=== PATIENT | male | born 1950 | race American Indian/Alaskan Native ===

== ENCOUNTER 2022-12-10 12:38 | Inpatient (IN) | payer MEDICARE, OTHER ==
[2022-12-10] MEDS ORDERED: Sodium Chloride 0.9% 10 ML Syringe FLUSH PRN (12:45)
[2022-12-10] MEDS ORDERED: Sodium Chloride 0.9% 500 ML IV ONE ×3 (12:47→16:01)
[2022-12-10 13:26] LABS: ESTIMATED GFR 72 mL/min (>60)
[2022-12-10 13:27] LABS: TROPONIN I HIGH SENSITIVITY 11.6 pg/mL (<=60.3)
[2022-12-10] MEDS ORDERED: Morphine 2 MG/ML SYRINGE IVPUSH ONE ×2 (13:33→13:57)
[2022-12-10 13:49] LABS: CORONAVIRUS COVID-19 NAA NEGATIVE (NEGATIVE)
[2022-12-10] MEDS ORDERED: Sodium Chloride 0.9% 1,000 ML IV SCH (14:00)
[2022-12-10] MEDS ORDERED: Adenosine 6 MG/2 ML SDV IVPUSH ONE (14:08)
[2022-12-10] MEDS ORDERED: Diltiazem 25 MG/5 ML SDV IVPUSH ONE (14:21)
[2022-12-10] MEDS ORDERED: Prochlorperazine 10 MG/2 ML SDV IVPUSH ONE (14:49)
[2022-12-10] MEDS ORDERED: Digoxin 500 MCG/2 ML Amp IVPUSH ONE (15:25)
[2022-12-10] MEDS ORDERED: Acetaminophen 325 MG Tab PO PRN (16:01)
[2022-12-10] MEDS ORDERED: Diltiazem 100 MG in Sodium Chloride 0.9% 100 ML IV SCH (16:01)
[2022-12-10] MEDS ORDERED: Ondansetron 4 MG Tab.DIS PO PRN (16:01)
[2022-12-10] MEDS ORDERED: HYDROmorphone 1 MG/ML Syringe IVPUSH PRN (16:01)
[2022-12-10] MEDS ORDERED: Ondansetron 4 MG/2 ML SDV IV PRN (16:01)
[2022-12-10] MEDS ORDERED: traMADol 50 MG Tab PO PRN (16:01)
[2022-12-10] MEDS ORDERED: Enoxaparin 40 MG/0.4 ML Syringe SUBCUT SCH (16:01)
[2022-12-10] MEDS ORDERED: LORazepam 2 MG/ML SDV IVPUSH PRN (16:01)
[2022-12-10] MEDS ORDERED: Nicotine 21 MG/24 Hr Patch TRDERM ONE (16:13)
[2022-12-10] MEDS ORDERED: LORazepam 2 MG/ML SDV IVPUSH ONE (16:13)
[2022-12-10] MEDS: Insulin Lispro 100 Unit/ML 3 ML KwikPen SUBCUT SCH ×3 (16:33→21:04)
[2022-12-10] MEDS: Sodium Chloride 0.9% 1,000 ML IV SCH (17:24)
[2022-12-10] MEDS ORDERED: LORazepam 0.5 MG Tab PO PRN (20:00)
[2022-12-10] MEDS ORDERED: Amiodarone 150 MG/3 ML SDV IVPUSH ONE (20:39)
[2022-12-10] MEDS ORDERED: Norepinephrine Bit/D5W Premix 4 MG in Premix Bag 1 BAG IV SCH (20:45)
[2022-12-10] MEDS ORDERED: Mirtazapine 15 MG Tab PO SCH (21:00)
[2022-12-10] MEDS: metFORMIN 500 MG Tab PO SCH (21:08)
[2022-12-10] MEDS: Gabapentin 400 MG Cap PO SCH (21:08)
[2022-12-10] MEDS: Insulin Glargine,Human Rec. Analog 100 Units/ML 3 ML Pen SUBCUT SCH (21:08)
[2022-12-10] MEDS: Famotidine 20 MG Tab PO SCH (21:12)
[2022-12-10] MEDS: Metoprolol Tartrate 50 MG Tab PO SCH (21:57)
[2022-12-11] MEDS: Sodium Chloride 0.9% 1,000 ML IV SCH (06:59)
[2022-12-11] MEDS: Insulin Lispro 100 Unit/ML 3 ML KwikPen SUBCUT SCH ×4 (07:05→12:01)
[2022-12-11] MEDS ORDERED: Aspirin 81 MG Tab.EC PO SCH (09:00)
[2022-12-11] MEDS ORDERED: Nicotine 21 MG/24 Hr Patch TRDERM SCH ×2 (09:00→16:30)
[2022-12-11] MEDS ORDERED: Cetirizine 10 MG Tab PO SCH (09:00)
[2022-12-11] MEDS ORDERED: predniSONE 5 MG Tab PO SCH (09:00)
[2022-12-11] MEDS ORDERED: Clopidogrel 75 MG Tab PO SCH (09:00)
[2022-12-11] MEDS ORDERED: atorvaSTATin 20 MG Tab PO SCH (09:00)
[2022-12-11] MEDS: metFORMIN 500 MG Tab PO SCH (09:06)
[2022-12-11] MEDS: Famotidine 20 MG Tab PO SCH (09:07)
[2022-12-11] MEDS: Gabapentin 400 MG Cap PO SCH ×2 (09:07→14:18)
[2022-12-11] MEDS: Metoprolol Tartrate 50 MG Tab PO SCH (09:07)
[2022-12-11] MEDS: Insulin Glargine,Human Rec. Analog 100 Units/ML 3 ML Pen SUBCUT SCH (09:11)
[2022-12-11] MEDS ORDERED: metFORMIN 500 MG Tab PO SCH (13:00)
[2022-12-11 13:02] VITALS: PULSE 63
[2022-12-11 14:03] VITALS: BP 126/71
== END 2022-12-11 15:00 | disposition home or self-care (01) | DRG 392 ==
LOC: JP.ED 12:38 → JP.ICU 15:25
PROVIDERS: ADMIT Internal Medicine; ATTEND Internal Medicine
DX: A08.4 Viral intestinal infection, unspecified (principal); I48.92 Unspecified atrial flutter; I95.89 Other hypotension; E86.1 Hypovolemia; E11.51 Type 2 diabetes mellitus with diabetic peripheral angiopathy without gangrene; E11.43 Type 2 diabetes mellitus with diabetic autonomic (poly)neuropathy; E86.0 Dehydration; H91.90 Unspecified hearing loss, unspecified ear; E78.00 Pure hypercholesterolemia, unspecified; E11.621 Type 2 diabetes mellitus with foot ulcer; L97.522 Non-pressure chronic ulcer of other part of left foot with fat layer exposed; I10 Essential (primary) hypertension; J44.9 Chronic obstructive pulmonary disease, unspecified; F17.210 Nicotine dependence, cigarettes, uncomplicated; R63.0 Anorexia; Z79.82 Long term (current) use of aspirin; Z79.4 Long term (current) use of insulin; Z98.890 Other specified postprocedural states; Z79.899 Other long term (current) drug therapy; Z79.02 Long term (current) use of antithrombotics/antiplatelets
CPT/HCPCS: 0241U; 36415; 71045; 71045-26; 80048; 80053; 81001; 82800; 82947; 83605; 83735; 84145; 84443; 84484; 85025; 85027; 85610; 85730; 86140; 93005; 93010; 96361; 96374; 96375; 99223; 99238; 99285; 99285-25; A9270-GY; J0153; J0282; J0780; J1160; J1650; J1815; J1815-GY; J2060; J2270; J3490; J7030; J7040; J7512

== ENCOUNTER 2023-03-27 08:23 | Inpatient (IN) | payer MEDICARE ==
[2023-03-27] MEDS ORDERED: Sodium Chloride 0.9% 10 ML Syringe FLUSH PRN (09:26)
[2023-03-27 09:38] LABS: BASOPHILS ABSOLUTE AUTO 0.03 K/uL (0.00-0.10); BASOPHILS PERCENT AUTO 0.2 % (0.1-1.3); EOSINOPHILS ABSOLUTE AUTO 0.06 K/uL (0.00-0.40); EOSINOPHILS PERCENT AUTO 0.4 % (0.0-5.4); HEMATOCRIT 31.9 % (38.4-49.7); IMMATURE GRAN ABSOLUTE AUTO 0.07 K/uL (0.00-0.23); IMMATURE GRAN PERCENT AUTO 0.5 % (0.0-0.7); LYMPHOCYTES ABSOLUTE AUTO 1.16 K/uL (0.8-3.3); LYMPHOCYTES PERCENT AUTO 8.3 % (11.4-47.7); MEAN CORPUSCULAR HEMOGLOBIN 30.2 pg (31.6-35.5); MEAN CORPUSCULAR HGB CONC 34.5 g/dL (31.6-35.5); MEAN CORPUSCULAR VOLUME 87.6 fL (81.4-99.0); MONOCYTES ABSOLUTE AUTO 0.53 K/uL (0.20-0.90); MONOCYTES PERCENT AUTO 3.8 % (3.3-12.6); NEUTROPHILS ABSOLUTE AUTO 12.06 K/uL (1.0-7.6); NEUTROPHILS PERCENT AUTO 86.8 % (40.0-78.1); PLATELET COUNT,PLT 370 K/uL (130-375); RED BLOOD CELL COUNT 3.64 M/uL (4.14-5.76); WHITE BLOOD CELL COUNT,WBC 13.9 K/uL (3.2-11.0)
[2023-03-27 10:12] LABS: APPEARANCE,URINE SLIGHTLY CLOUDY (CLEAR); BILIRUBIN,URINE NEGATIVE (NEGATIVE); COLOR,URINE YELLOW (YELLOW); GLUCOSE,URINE 100 mg/dL (NEGATIVE); KETONES,URINE NEGATIVE (NEGATIVE); LEUKOCYTE ESTERASE,URINE NEGATIVE (NEGATIVE); NITRITE,URINE NEGATIVE (NEGATIVE); OCCULT BLOOD,URINE LARGE (NEGATIVE); PROTEIN,URINE >=300 mg/dL (NEGATIVE); UROBILINOGEN,URINE 0.2 EU/dL (0.2-1.0)
[2023-03-27 10:27] LABS: A/G RATIO 0.4 (1.2-2.2); ALANINE AMINOTRANSFERASE,ALT 18 U/L (12-78); ALBUMIN 1.8 g/dL (3.4-5.0); ALKALINE PHOSPHATASE 110 U/L (46-116); ASPARTATE AMNIOTRANSFERASE,AST 22 U/L (15-37); BILIRUBIN TOTAL 0.3 mg/dL (0.2-1.0); CALCIUM 7.4 mg/dL (8.5-10.1); CARBON DIOXIDE,CO2 24 mmol/L (21-32); CHLORIDE,CL 102 mmol/L (100-108); EST CRCL DRUG DOSING (CG) 12.76 mL/min; ESTIMATED GFR 12 mL/min (>60); GLUCOSE RANDOM 74 mg/dL (74-106); POTASSIUM,K 4.1 mmol/L (3.6-5.2); PROTEIN TOTAL,TP 6.3 g/dL (6.4-8.2); SODIUM,NA 137 mmol/L (140-148)
[2023-03-27 10:30] LABS: ANION GAP 15.1 mmol/L (5.0-14.0)
[2023-03-27 10:31] LABS: BLOOD UREA NITROGEN,BUN 81 mg/dL (7-18); CREATININE 4.7 mg/dL (0.8-1.3)
[2023-03-27 10:31] LABS: RBC,URINE 50-75 (0-5); WBC,URINE 0-5 (0-5)
[2023-03-27 10:32] LABS: AMORPHOUS SEDIMENT,URINE MANY; BACTERIA,URINE RARE; EPITHELIAL CELLS,URINE NOT SEEN; MUCUS,URINE NOT SEEN
[2023-03-27 10:33] LABS: C-REACTIVE PROTEIN 7.48 mg/dL (0.0-0.3); MAGNESIUM 2.7 mg/dL (1.8-2.4); PHOSPHORUS 5.7 mg/dL (2.5-4.9)
[2023-03-27 10:33] LABS: FOLIC ACID 9.5 ng/ml (8.6-58.9)
[2023-03-27] MEDS ORDERED: Dextrose 5%-0.9% NaCl 1,000 ML IV SCH ×2 (10:45→12:00)
[2023-03-27] MEDS ORDERED: LORazepam 2 MG/ML SDV IVPUSH ONE (13:08)
[2023-03-27] MEDS ORDERED: Ondansetron 4 MG Tab.DIS PO PRN (13:35)
[2023-03-27] MEDS ORDERED: Ondansetron 4 MG/2 ML SDV IV PRN (13:35)
[2023-03-27] MEDS ORDERED: Albuterol 0.083% 2.5 MG/3 ML Neb Soln NEB PRN (13:35)
[2023-03-27 13:59] LABS: PROTEIN,URINE RANDOM 802.2 mg/dL (6.0-11.9)
[2023-03-27] MEDS ORDERED: HYDROmorphone 0.5 MG/0.5 ML Syringe IVPUSH PRN (14:24)
[2023-03-27] MEDS: Sodium Chloride 0.9% 1,000 ML IV SCH (14:37)
[2023-03-27] MEDS: Nicotine 21 MG/24 Hr Patch TRDERM PRN (16:32)
[2023-03-27] MEDS: LORazepam 2 MG/ML SDV IVPUSH PRN ×2 (16:58→23:22)
[2023-03-27] MEDS: Pantoprazole 40 MG Vial IV SCH (17:01)
[2023-03-28] MEDS: LORazepam 2 MG/ML SDV IVPUSH PRN (03:59)
[2023-03-28] MEDS: Pantoprazole 40 MG Vial IV SCH (05:38)
[2023-03-28 05:52] LABS: HEMATOCRIT 27.8 % (38.4-49.7); HEMOGLOBIN 9.5 g/dL (12.9-16.9); MEAN CORPUSCULAR HEMOGLOBIN 29.7 pg (31.6-35.5); MEAN CORPUSCULAR HGB CONC 34.2 g/dL (31.6-35.5); MEAN CORPUSCULAR VOLUME 86.9 fL (81.4-99.0); RED BLOOD CELL COUNT 3.2 M/uL (4.14-5.76); WHITE BLOOD CELL COUNT,WBC 10.1 K/uL (3.2-11.0)
[2023-03-28 06:10] LABS: EST CRCL DRUG DOSING (CG) 15.29 mL/min; POTASSIUM,K 3.9 mmol/L (3.6-5.2)
[2023-03-28 06:12] LABS: ANION GAP 14.9 mmol/L (5.0-14.0)
[2023-03-28 06:14] LABS: CALCIUM 6.8 mg/dL (8.5-10.1); CREATININE 4.3 mg/dL (0.8-1.3)
[2023-03-28] MEDS: Sodium Chloride 0.9% 1,000 ML IV SCH ×3 (07:35→19:32)
[2023-03-28] MEDS ORDERED: Propofol 200 MG/20 ML SDV ONE ×2 (07:53→10:28)
[2023-03-28] MEDS ORDERED: fentaNYL 100 MCG/2 ML SDV ONE (07:54)
[2023-03-28] MEDS ORDERED: Glycopyrrolate 0.2 MG/ML 2 ML SDV IVPUSH ONE ×3 (09:00→12:30)
[2023-03-28] MEDS ORDERED: Sodium Chloride 0.9% 10 ML ONE (10:39)
[2023-03-28] MEDS ORDERED: Phenylephrine 1% 10 MG/ML SDV ONE (10:39)
[2023-03-28] MEDS ORDERED: Ondansetron 4 MG/2 ML SDV IVPUSH ONE (11:19)
[2023-03-28] MEDS ORDERED: Metoclopramide 10 MG/2 ML SDV IVPUSH ONE (11:20)
[2023-03-28] MEDS ORDERED: Scopolamine 1.5 MG Transdermal Patch TOP SCH (11:30)
[2023-03-28] MEDS ORDERED: Ondansetron 4 MG/2 ML SDV IVPUSH PRN (12:37)
[2023-03-28] MEDS: SCOPOLAMINE PATCH CHECK TOP SCH (13:12)
[2023-03-28] MEDS: Nicotine 21 MG/24 Hr Patch TRDERM PRN (17:04)
[2023-03-28] MEDS: LORazepam 0.5 MG Tab PO PRN ×2 (18:44→22:37)
[2023-03-28] MEDS: Metoclopramide 10 MG/2 ML SDV IVPUSH SCH (20:24)
[2023-03-28] MEDS: Insulin Lispro 100 Unit/ML 3 ML KwikPen SUBCUT SCH (21:45)
[2023-03-29] MEDS: Metoclopramide 10 MG/2 ML SDV IVPUSH SCH (03:00)
[2023-03-29] MEDS ORDERED: Iopamidol 612 MG/ML 50 ML SDV PO ONE (03:33)
[2023-03-29] MEDS: Sodium Chloride 0.9% 1,000 ML IV SCH (03:34)
[2023-03-29 06:00] LABS: HEMATOCRIT 28.6 % (38.4-49.7); HEMOGLOBIN 9.6 g/dL (12.9-16.9); MEAN CORPUSCULAR HGB CONC 33.6 g/dL (31.6-35.5); MEAN CORPUSCULAR VOLUME 89.4 fL (81.4-99.0); RED BLOOD CELL COUNT 3.2 M/uL (4.14-5.76); WHITE BLOOD CELL COUNT,WBC 10.7 K/uL (3.2-11.0)
[2023-03-29 06:13] LABS: EST CRCL DRUG DOSING (CG) 15.29 mL/min; POTASSIUM,K 3.9 mmol/L (3.6-5.2)
[2023-03-29 06:17] LABS: ANION GAP 13.9 mmol/L (5.0-14.0)
[2023-03-29 06:18] LABS: CALCIUM 6.7 mg/dL (8.5-10.1); CREATININE 4.3 mg/dL (0.8-1.3)
[2023-03-29 07:49] VITALS: BP 169/89; PULSE 88
[2023-03-29] MEDS ORDERED: Acetaminophen 325 MG Tab PO PRN (07:56)
[2023-03-29] MEDS: Insulin Lispro 100 Unit/ML 3 ML KwikPen SUBCUT SCH (08:16)
[2023-03-29] MEDS ORDERED: Gabapentin 100 MG Cap PO SCH (09:00)
[2023-03-29] MEDS ORDERED: Famotidine 20 MG Tab PO SCH (09:00)
[2023-03-29] MEDS ORDERED: atorvaSTATin 20 MG Tab PO SCH (09:00)
[2023-03-29] MEDS ORDERED: Clopidogrel 75 MG Tab PO SCH (09:00)
[2023-03-29] MEDS ORDERED: Metoprolol Tartrate 50 MG Tab PO SCH (09:00)
[2023-03-29] MEDS ORDERED: Aspirin 81 MG Tab.Chew PO SCH (09:00)
[2023-03-29] MEDS: SCOPOLAMINE PATCH CHECK TOP SCH (09:58)
== END 2023-03-29 14:00 | disposition home or self-care (01) | DRG 683 ==
LOC: JP.ED 08:23 → JP.MS 13:14
PROVIDERS: ADMIT Internal Medicine; ATTEND Internal Medicine
DX: N17.9 Acute kidney failure, unspecified (principal); C34.91 Malignant neoplasm of unspecified part of right bronchus or lung; K31.5 Obstruction of duodenum; I48.20 Chronic atrial fibrillation, unspecified; T66.XXXA Radiation sickness, unspecified, initial encounter; R13.19 Other dysphagia; R31.21 Asymptomatic microscopic hematuria; R80.9 Proteinuria, unspecified; E11.42 Type 2 diabetes mellitus with diabetic polyneuropathy; E11.622 Type 2 diabetes mellitus with other skin ulcer; Z20.822 Contact with and (suspected) exposure to COVID-19; E86.0 Dehydration; L97.522 Non-pressure chronic ulcer of other part of left foot with fat layer exposed; L97.512 Non-pressure chronic ulcer of other part of right foot with fat layer exposed; I83.015 Varicose veins of right lower extremity with ulcer other part of foot; I83.025 Varicose veins of left lower extremity with ulcer other part of foot; J44.9 Chronic obstructive pulmonary disease, unspecified; I10 Essential (primary) hypertension; F41.9 Anxiety disorder, unspecified; E11.51 Type 2 diabetes mellitus with diabetic peripheral angiopathy without gangrene; F17.210 Nicotine dependence, cigarettes, uncomplicated; E78.00 Pure hypercholesterolemia, unspecified; Z79.4 Long term (current) use of insulin; Z85.841 Personal history of malignant neoplasm of brain; Z89.411 Acquired absence of right great toe; Z98.42 Cataract extraction status, left eye; Z98.41 Cataract extraction status, right eye; Z98.890 Other specified postprocedural states; Z79.82 Long term (current) use of aspirin; Z79.02 Long term (current) use of antithrombotics/antiplatelets; Z86.73 Personal history of transient ischemic attack (TIA), and cerebral infarction without residual deficits; Z92.3 Personal history of irradiation; Z89.421 Acquired absence of other right toe(s)
CPT/HCPCS: 36415; 71045; 71045-26; 74018; 74018-26; 74240; 74240-26; 76770; 80048; 80053; 81001; 82570; 82607; 82746; 82947; 83735; 84100; 84134; 84156; 84443; 85025; 85027; 86140; 88305; 96360; 96361; 99222; 99232; 99238; 99285; 99285-25; A9270-GY; C1874; C9113; J1170; J2060; J2370; J2405; J2704; J2765; J3010; J3490; J7030; Q9967; U0002